=== PATIENT | male | born 1965 | race Caucasian/White ===

== ENCOUNTER → 2024-05-21 | Outpatient (CLI) | payer OTHER ==
[~2024-05-21] MED LIST: METO10 PO; [UNRECOGNIZED DRUG - REMARK] PO
[2024-05-21 16:10] LABS: BASOPHILS ABSOLUTE AUTO 0.01 K/mm3 (0.00-0.23); BASOPHILS PERCENT AUTO 0 % (0-2); EOSINOPHILS ABSOLUTE AUTO 0.14 K/mm3 (0.00-0.68); EOSINOPHILS PERCENT AUTO 2 % (0-6); Hematocrit 43.1 % (37.0-53.0); Hemoglobin 14.8 g/dL (13.5-17.5); IMMATURE GRAN ABSOLUTE AUTO 0.02 K/mm3 (0.00-0.10); IMMATURE GRAN PERCENT AUTO 0 % (0-1); LYMPHOCYTES ABSOLUTE AUTO 1.61 K/mm3 (0.84-5.20); LYMPHOCYTES PERCENT AUTO 23 % (21-46); MONOCYTES ABSOLUTE AUTO 0.64 K/mm3 (0.16-1.47); MONOCYTES PERCENT AUTO 9 % (4-13); Mean Corpuscular HGB 30.5 pg (26.0-34.0); Mean Corpuscular HGB Conc 34.3 g/dL (31.5-36.5); Mean Corpuscular Volume 89 fL (80-100); Mean Platelet Volume 9.4 fL (9.1-12.4); NEUTROPHILS ABSOLUTE AUTO 4.64 K/mm3 (1.96-9.15); NEUTROPHILS PERCENT AUTO 66 % (41-73); Platelet Count 227 K/mm3 (150-400); RDW Coefficient Variation 12.8 % (11.7-14.2); RDW Standard Deviation 41.3 fL (35.1-46.3); Red Blood Cell Count 4.86 M/mm3 (4.30-5.90); White Blood Cell Count 7.06 K/mm3 (4.00-11.30)
[2024-05-21 16:21] LABS: Albumin/Globulin Ratio 0.7 (0.8-1.8); Bilirubin, Total 0.9 mg/dL (0.1-1.0); Bun/Creatinine Ratio 10.3 (12.0-20.0); Calcium, Blood 8.8 mg/dL (8.5-10.1); Creatinine, Blood 1.16 mg/dL (0.60-1.20); Globulin, Blood 4.1 g/dL (2.2-4.0); Potassium, Blood 3.9 mmol/L (3.5-5.5); Total Protein, Blood 7.1 g/dL (6.4-8.2)
== END | disposition home or self-care (01) ==
LOC: LAB SHORT 16:05 → LAB 16:05
PROVIDERS: Chiropractor
DX: M54.50 Low back pain, unspecified (principal)
CPT/HCPCS: 80053; 85025

== ENCOUNTER 2024-11-26 14:23 | Inpatient (IN) | payer OTHER ==
[~2024-11-26] VITALS: Ht 188 cm; Wt 113.4 kg
[2024-11-26] MEDS ORDERED: Morphine Sulfate 4 MG/1 ML Injection IV PRN (14:45)
[2024-11-26] MEDS ORDERED: CeFAZolin Sodium 2,000 MG in NS 100 ML IV ONE (14:45)
[2024-11-26 15:02] LABS: BASOPHILS ABSOLUTE AUTO 0.02 K/mm3 (0.00-0.23); BASOPHILS PERCENT AUTO 0 % (0-2); EOSINOPHILS ABSOLUTE AUTO 0.09 K/mm3 (0.00-0.68); EOSINOPHILS PERCENT AUTO 1 % (0-6); Hematocrit 43.9 % (37.0-53.0); Hemoglobin 15.3 g/dL (13.5-17.5); IMMATURE GRAN ABSOLUTE AUTO 0.01 K/mm3 (0.00-0.10); IMMATURE GRAN PERCENT AUTO 0 % (0-1); LYMPHOCYTES ABSOLUTE AUTO 1.55 K/mm3 (0.84-5.20); LYMPHOCYTES PERCENT AUTO 17 % (21-46); MONOCYTES ABSOLUTE AUTO 0.52 K/mm3 (0.16-1.47); MONOCYTES PERCENT AUTO 6 % (4-13); Mean Corpuscular HGB Conc 34.9 g/dL (31.5-36.5); Mean Corpuscular Volume 89 fL (80-100); NEUTROPHILS ABSOLUTE AUTO 7.21 K/mm3 (1.96-9.15); NEUTROPHILS PERCENT AUTO 77 % (41-73); NRBC ABSOLUTE 0.00 K/mm3 (0.00-0.02); NRBC Auto 0.0 /100 WBC (0.0-0.2); Platelet Count 210 K/mm3 (150-400); RDW Coefficient Variation 13.2 % (11.7-14.2); RDW Standard Deviation 43.2 fL (35.1-46.3)
--- NOTE | 2024-11-26 15:02 | NUR ---
"Spiritual Care | Trauma Team family support. Stayed with spouse outside the room while the staff was stabilizing the pt. on the ED bed. Facilitated life review and story of the day. Listened with interest and empathy. This electric melt operator encouraged the Pt. to share concerns with Pts. nurse. When Pt. went to bedside, this electric melt operator departed."
[2024-11-26 15:18] LABS: Prothrombin Time Results 11.4 Sec (9.7-11.5)
[2024-11-26] MEDS ORDERED: HYDROmorphone HCl/Pf 1MG SYR IV ONE (15:50)
[2024-11-26 15:58] LABS: Alanine Aminotransfer (ALT/SGP 29 U/L (12-78); Albumin, Blood 3.6 g/dL (3.4-5.0); Albumin/Globulin Ratio 1.1 (0.8-1.8); Anion Gap 6 mmol/L (3-11); Aspartate Aminotrans (AST/SGOT 19 U/L (12-37); Bilirubin, Total 0.8 mg/dL (0.1-1.0); Blood Urea Nitrogen 18 mg/dL (8-24); CO2, Blood 25 mmol/L (21-32); Calcium, Blood 8.8 mg/dL (8.5-10.1); Chloride, Blood 104 mmol/L (98-108); Creatinine, Blood 1.13 mg/dL (0.60-1.20); Globulin, Blood 3.3 g/dL (2.2-4.0); Glucose, Blood 149 mg/dL (70-99); Potassium, Blood 4.3 mmol/L (3.5-5.5); Sodium, Blood 131 mmol/L (136-145); Total Protein, Blood 6.9 g/dL (6.4-8.2)
[2024-11-26 15:59] LABS: Ethanol (Alcohol), Blood, Med <3 mg/dL
[2024-11-26] MEDS ORDERED: Morphine Sulfate 4 MG/1 ML Injection IV ONE (17:25)
[2024-11-26] MEDS ORDERED: Clindamycin 600mg in D5W 50 ML IV ONE (17:40)
[2024-11-26 17:46] LABS: Source, Urine Clean Catch
[2024-11-26 17:50] LABS: Bilirubin, Urine Neg (Neg); Color, Urine Yellow (P-Yellow); Glucose Qualitative, Urine Neg (Neg); Ketones, Urine Neg (Neg); Leukocyte Esterase, Urine Neg (Neg); Protein, Urine 1+ (Neg); Specific Gravity, Urine 1.015 (1.003-1.022); Urobilinogen, Urine NORM (Normal)
[2024-11-26 18:04] LABS: U Amphetamine Screen DETECTED; U Barbituate Screen Not Detected; U Benzodiazapine Screen Not Detected; U Buprenorphine Screen Not Detected; U Cannabinoids Screen Not Detected; U Cocaine Screen Not Detected; U Methadone Screen Not Detected; U Methamphetamine Screen DETECTED; U Opiates Screen DETECTED; U Oxycodone Screen Not Detected; U Phencyclidine Screen Not Detected
[2024-11-26] MEDS ORDERED: NS 1,000 ML IV SCH (21:00)
[2024-11-26] MEDS ORDERED: Ketorolac Tromethamine 15mg Vial IV PRN (21:00)
[2024-11-26] MEDS ORDERED: OxyCODONE 5 mg/Acetamin 325 mg TABLET PO PRN ×2 (21:00→22:15)
[2024-11-26] MEDS ORDERED: FentaNYL Citrate 50 MCG/ML 2 ML Injection ONE (23:53)
[2024-11-26] MEDS ORDERED: Rocuronium Bromide 10 MG/ML 5ML Injection IV ONE (23:55)
[2024-11-27] VITALS (8 sets, daily range): BP systolic 121–142; BP diastolic 65–82
[2024-11-27] MEDS ORDERED: Dexamethasone Sod Phos 10 MG/ML 1ML VIAL ONE (00:05)
[2024-11-27] MEDS ORDERED: Ketorolac Tromethamine 30mg Vial ONE (00:05)
[2024-11-27] MEDS ORDERED: Ondansetron HCl 2 MG / ML 2ML Vial ONE (00:05)
[2024-11-27] MEDS ORDERED: HYDROmorphone HCl/Pf 1MG SYR IV PRN ×2 (00:20→03:10)
[2024-11-27] MEDS ORDERED: Ondansetron HCl 2 MG / ML 2ML Vial IV PRN (00:20)
[2024-11-27] MEDS ORDERED: Albuterol 2.5 MG/3 ML VIAL INH PRN (00:20)
[2024-11-27] MEDS ORDERED: FentaNYL Citrate 50 MCG/ML 2 ML Injection IV PRN (00:20)
[2024-11-27] MEDS ORDERED: Bupivacaine 0.5% HCl 5 MG/ML 30MLVIAL ONE (00:22)
[2024-11-27] MEDS ORDERED: Sugammadex Sodium 200 MG/2ML SDV (100 MG/ML) ONE (00:57)
[2024-11-27] MEDS ORDERED: Clindamycin 900mg in D5W 50ML 50 ML IV SCH (02:00)
[2024-11-27] MEDS ORDERED: CeFAZolin Sodium 1,000 MG in NS 50 ML IV SCH (02:00)
[2024-11-27] MEDS ORDERED: OxyCODONE 5 mg/Acetamin 325 mg TABLET PO PRN ×2 (03:10→15:15)
[2024-11-27] MEDS ORDERED: NS 1,000 ML IV SCH (03:10)
--- NOTE | 2024-11-27 03:30 | NUR ---
ARRIVAL NOTE PT ARRIVED TO UNIT FROM ICU/PACU S/P I&D OF LEFT ELBOW AT 0200 TODAY. DRESSING AND SHRUTHI WRAP TO LEFT ELBOW CDI. SOFT SPLINT AND SHRUTHI WRAP TO LLE CDI DUE TO UNSTABLE TIB/FIB FX. DENIES N/T, ABLE TO WIGGLE FINGERS AND TOES. ABRASION FROM [employer] NOTED TO MOST OF RIGHT ARM- WOUND IS SUPERFICIAL, OPEN TO AIR AND WITHOUT ANY DRAINAGE. SEE PHOTO IN CHART. PT IS A/OX4 WITH VSS. ABLE TO MAKE NEEDS KNOWN. ATTENTIVE AT BEDSIDE. VALERY PO INTAKE, DENIES N/V. AWAITING FIRST POST OP VOID. IS NON WT BEARING ON LLE/LUE. ABX AND IVF INFUSING PER ORDERS. DENIES PAIN. ORIENTATION TO ROOM PROVIDED TO PT AND SPOUSE. ADMISSION ASSESSMENT AND INTAKE QUESTIONS COMPLETED ON PAPER CHARTING DUE TO MEDITECH DOWN TIME. PLAN FOR REST, IV ABX AND PAIN MANAGEMENT UNTIL REPEAT I/D AND LLE FX REPAIR TOMORROW. PT CURRENTLY EATING SNACKS AND VISITING WITH . HAS CALL LIGHT AND DENIES NEEDS. WILL GIVE REPORT TO ONCOMING RN.
[2024-11-27 05:16] LABS: BASOPHILS ABSOLUTE AUTO 0.01 K/mm3 (0.00-0.23); BASOPHILS PERCENT AUTO 0 % (0-2); EOSINOPHILS ABSOLUTE AUTO 0.01 K/mm3 (0.00-0.68); EOSINOPHILS PERCENT AUTO 0 % (0-6); Hematocrit 42.9 % (37.0-53.0); Hemoglobin 14.5 g/dL (13.5-17.5); IMMATURE GRAN ABSOLUTE AUTO 0.02 K/mm3 (0.00-0.10); IMMATURE GRAN PERCENT AUTO 0 % (0-1); LYMPHOCYTES ABSOLUTE AUTO 0.69 K/mm3 (0.84-5.20); LYMPHOCYTES PERCENT AUTO 9 % (21-46); MONOCYTES ABSOLUTE AUTO 0.19 K/mm3 (0.16-1.47); MONOCYTES PERCENT AUTO 2 % (4-13); Mean Corpuscular HGB Conc 33.8 g/dL (31.5-36.5); Mean Corpuscular Volume 90 fL (80-100); NEUTROPHILS ABSOLUTE AUTO 6.99 K/mm3 (1.96-9.15); NEUTROPHILS PERCENT AUTO 88 % (41-73); NRBC ABSOLUTE 0.00 K/mm3 (0.00-0.02); NRBC Auto 0.0 /100 WBC (0.0-0.2); Platelet Count 210 K/mm3 (150-400); RDW Coefficient Variation 13.2 % (11.7-14.2); RDW Standard Deviation 43.5 fL (35.1-46.3)
[2024-11-27 05:39] LABS: Alanine Aminotransfer (ALT/SGP 25.0 U/L (12-78); Albumin, Blood 3.2 g/dL (3.4-5.0); Albumin/Globulin Ratio 1.0 (0.8-1.8); Anion Gap 10.0 mmol/L (3-11); Aspartate Aminotrans (AST/SGOT 15.0 U/L (12-37); Bilirubin, Total 1.0 mg/dL (0.1-1.0); Blood Urea Nitrogen 17.0 mg/dL (8-24); CO2, Blood 24.0 mmol/L (21-32); Calcium, Blood 7.9 mg/dL (8.5-10.1); Chloride, Blood 103.0 mmol/L (98-108); Creatinine, Blood 1.12 mg/dL (0.60-1.20); Globulin, Blood 3.3 g/dL (2.2-4.0); Glucose, Blood 228.0 mg/dL (70-99); Potassium, Blood 4.5 mmol/L (3.5-5.5); Sodium, Blood 132.0 mmol/L (136-145); Total Protein, Blood 6.5 g/dL (6.4-8.2)
--- NOTE | 2024-11-27 15:26 | NUR ---
SHIFT SUMMARY PT HAS DONE WELL TODAY. ABLE TO MAKE NEEDS KNOWN. PAIN MANAGED PER EMAR, WITH ACTIVITY PAIN INCREASED. MD NOTIFIED AND NEW ORDERS RECIEVED. EATING, DRINKING, AND VOIDING WELL. CAP REFILL <3 SECONDS. LLE ELEVATED ON PILLOW. LUE WOUNDVAC WNL. PER DR BISHOP PRESCOTT NON-SURG, PLANS TO INCORPERATE THERAPY. REPORT GIVEN TO MARSHA NEGRON.
--- NOTE | 2024-11-27 15:37 | NUR ---
ASSUMED CARE OF PT. RESTING IN BED, CALL LIGHT IN REACH. SPOUSE BEDSIDE. DENIES ANY NEEDS AT THIS TIME.
--- NOTE | 2024-11-27 17:29 | NUR ---
SUMMARY NO ACUTE CHANGES SINCE ASSUMING CARE OF PT AT 1600. ADMINISTERED ABX PER ORDERS. PT SLEEPING OFF AND ON. SPOUSE BEDSIDE. CALL LIGHT IN PT'S REACH.
[2024-11-28] VITALS (18 sets, daily range): BP systolic 109–144; BP diastolic 51–94
--- NOTE | 2024-11-28 04:08 | NUR ---
SHIFT SUMMARY JIGNESH WAS ASLEEP, BUT EASILY ROUSABLE AND FULLY ORIENTED ON ASSESSMENT. PT PAIN WELL MANAGED. WOUND VAC IN PLACE TO L ELBOW SUCTIONING RED S/S. SENSATION TO EXT'S INTACT WITH GOOD CAP REFIL TO TOES/FINGERS. PT KEPT NPO FROM MIDNIGHT FOR I/D ON DAYSHIFT. PT DENIES NEW OR WORSENING CONDITIONS. NO ACUTE EVENTS TONIGHT.
[2024-11-28] MEDS ORDERED: Tranexamic Acid 100 ML IV SCH (09:40)
[2024-11-28] MEDS ORDERED: Ondansetron HCl 2 MG / ML 2ML Vial ONE (11:02)
[2024-11-28] MEDS ORDERED: FentaNYL Citrate 50 MCG/ML 2 ML Injection ONE (11:02)
[2024-11-28] MEDS ORDERED: Midazolam HCl 1MG / ML 2ML Vial ONE (11:02)
[2024-11-28] MEDS ORDERED: Dexamethasone Sod Phos 10 MG/ML 1ML VIAL ONE (11:02)
--- NOTE | 2024-11-28 11:52 | NUR ---
assumption ASSUMED CARE OF PT @0700. AXO4. VSS. L ARM WITH WOUND VAC. L ANKLE IN SPLINT, DRESSING CDI. PT PAINFUL, PO MEDS ADMINISTERED, PT REQUIRED IV PAIN MEDICATION ON TOP OF THIS TO ADEQUATELY CONTROL ANKLE PAIN, POST ADMINISTRATION, PT STATES TOLERABLE PAIN LEVEL AND RESTING. HAS REMAINED NPO EXCEPT FOR SMALL SIP OF WATER FOR PO PILLS. IV ABX INFUSED. SURGERY NURSE PICKING PT UP NOW FOR [facility] [id number]
[2024-11-28] MEDS ORDERED: Bupivacaine 0.5% W/EPI 1:200000 SDV 30 ML Vial ONE (12:04)
--- NOTE | 2024-11-28 12:19 | NUR ---
History, Chart, Medications and Allergies reviewed before start of procedure. Patient confirms NPO status and agrees with scheduled surgery. Pre-Op teaching done. Pt verbalizes understanding. Lungs clear T/O to Auscultation.
--- NOTE | 2024-11-28 12:20 | NUR ---
PT PRESENTS WITH WOUND VAC TO LEFT ELBOW
[2024-11-28] MEDS ORDERED: Phenylephrine HCl 100 MCG/ML-NS 10MLSYR (1MG/10ML) ONE (12:24)
[2024-11-28] MEDS ORDERED: CeFAZolin Sodium 1000 mg Vial ONE (12:59)
[2024-11-28] MEDS ORDERED: Ketorolac Tromethamine 30mg Vial ONE (13:08)
[2024-11-28] MEDS ORDERED: HYDROmorphone HCl/Pf 1MG SYR IV PRN ×2 (13:10→13:15)
[2024-11-28] MEDS ORDERED: Albuterol 2.5 MG/3 ML VIAL INH PRN (13:10)
[2024-11-28] MEDS ORDERED: Metoclopramide HCl 5MG / ML 2ML Vial IV PRN (13:10)
[2024-11-28] MEDS ORDERED: HydrALAZINE HCl 20 MG / ML 1ML Vial IV PRN (13:15)
[2024-11-28] MEDS ORDERED: Ondansetron HCl 2 MG / ML 2ML Vial IV PRN (13:15)
[2024-11-28] MEDS ORDERED: FentaNYL Citrate 50 MCG/ML 2 ML Injection IV PRN ×2 (13:15)
--- NOTE | 2024-11-28 14:49 | NUR ---
PT BACK TO UNIT @1445 AXO4. VSS. L LEG IN SPLINT. L ARM IN SHRUTHI WRAP WITH WOUND VAC. C/O PAIN CURRENTLY. WILL TREAT PER EMAR.
[2024-11-28] MEDS ORDERED: NS 250 ML IV PRN (15:40)
--- NOTE | 2024-11-28 18:04 | NUR ---
SUMMARY PT AXO4. VSS. HAD L ANKLE PINNING AND L ELBOW WASHED OUT AND INCISION CLOSED UP MORE. WOUND VAC PLACED TO L ARM, DRESSED WITH SHRUTHI WRAP. L ANKLE SOFT SPLINTED, DRESSED WITH SHRUTHI WRAP. POST OP, VSS. AXO4. TOLERATING FULL MEAL. TALAKTIVE. REQIRED PAIN MEDICATIONS - TOLERATED WELL. DENYING NASUEA. IN ROOM POST OP. PT SITTING UP IN BED IN CHEERFUL MOOD. 2ND DOSE OF TXA ADMINISTERED. ABX INFUSING ORDERED. PT USING CALL LIGHT APPROPRIATELY.
[2024-11-29 04:30] VITALS: BP 145/72
--- NOTE | 2024-11-29 05:07 | NUR ---
SHIFT SUMMARY LUZ WAS SLEEPING HEAVILY AT START OF SHIFT BUT ROUSABLE AND FULLY ORIENTED ON ASSESSMENT. PT PAIN WELL MANAGED. SENSATION AND CIRCULATION TO ALL EXT'S INTACT, ABLE TO WIGGLE ALL FINGERS AND TOES. DRESSING TO L ELBOW C/D/I AND ATTATCHED TO WOUND VAC, SCANT TO NO DRAINAGE COLLECTED. NO DRAINAGE NOTED TO L ANKLE CAST. NO ACUTE EVENTS TONIGHT NO NOTED CHANGES TO PT CONDITION.
[2024-11-29 08:35] VITALS: BP 147/83
[2024-11-29 09:06] LABS: Anion Gap 8.0 mmol/L (3-11); Blood Urea Nitrogen 20.0 mg/dL (8-24); CO2, Blood 26.0 mmol/L (21-32); Calcium, Blood 8.3 mg/dL (8.5-10.1); Chloride, Blood 106.0 mmol/L (98-108); Creatinine, Blood 0.97 mg/dL (0.60-1.20); Glucose, Blood 129.0 mg/dL (70-99); Potassium, Blood 4.5 mmol/L (3.5-5.5); Sodium, Blood 135.0 mmol/L (136-145)
[2024-11-29 16:34] VITALS: BP 147/74
--- NOTE | 2024-11-29 17:11 | NUR ---
SUMMARY NO ACUTE CHANGES THIS SHIFT. VSS. ABX INFUSING T/O SHIFT. PAIN MEDS PER PT REUEST IN PLACE - NOT WANTING TO BE "TOO DROWSY". SOFT SPLINT REMAINS TO L LEG. WOUND VAC REMAINS TO L ARM. BOTH SHRUTHI WRAPS CDI. TOLERATING PO INTAKE. STATES NO BM POST HOSPITALIZATION YET. RECEIVING COLACE BID. OTHERWISE, PLAN FOR POSSIBLE DC MONDAY/MONDAY - DEPENDING ON WOUND CARE CAPABILITIES.
[2024-11-29 19:35] VITALS: BP 156/70
--- NOTE | 2024-11-30 04:38 | NUR ---
SHIFT SUMMARY NOC PT A/O X 4. PLEASANT AND COOPERATIVE WITH CARE. VSS. NO ACUTE CHANGES TO REPORT. SPLINT/DRESSING ON LLE IS C/D/I, WELL DRESSING ON LUE WITH WOUND VAC DRAINING VERY SCANT AMOUNTS OF SEROSANGUINEOUS FLUID. PT RECEIVING IV ABX AND PAIN MANAGEMENT PER EMAR. PT STILL HAS NOT HAD BM IN LAST 3 DAYS AND HAS RECEIVED BOWEL CARE PER EMAR. PT CURRENTLY RESTING WITH BED IN LOWEST POSITION, AND CALL LIGHT WITHIN REACH.
[2024-11-30 04:42] VITALS: BP 172/93
[2024-11-30 07:58] VITALS: BP 134/78
[2024-11-30] MEDS ORDERED: Polyethylene Glycol 3350 17 gm PO SCH (09:15)
[2024-11-30 15:50] VITALS: BP 150/84
--- NOTE | 2024-11-30 18:06 | NUR ---
SHIFT SUMMARY PT A&OX4, VSS, RA. BOWEL MEDS ORDERED, BM THIS AFTERNOON ON TOILET. PT MEDICALLY STABLE FOR DISCHARGE, AWAITING WOUND VAC TO TAKE HOME PRIOR TO DISCHARGE. PT ABLE TO MOVE TOES, PULSES AND CAP REFIL STRONG TO ALL EXTREMITIES.
[2024-11-30 20:07] VITALS: BP 139/84
[2024-12-01 03:30] VITALS: BP 122/75
--- NOTE | 2024-12-01 04:01 | NUR ---
SHIFT SUMMARY NOC PT A/O X 4. PLEASANT AND COOPERATIVE WITH CARE. VSS. NO ACUTE CHANGES TO REPORT. WOUND VAC ON LUE WITH SCANT SEROSANGUINOUS DRAINAGE WITH SHRUTHI WRAP OVER DRESSING. SPLINT WITH SHRUTHI WRAP OVER L ANKLE FX C/D/I. PAIN BEING MANAGED PER EMAR. PT AND AND HOPE TO DISCHARGE TOMORROW, BUT UNSURE IF THEY WILL BE ABLE TO OBTAIN A PERSONAL WOUND VAC PRIOR TO MONDAY. THE PT SPOUSE SAID SHE WILL LOOK ON THE COAST AND UP IN [place] TO SEE IF ONE IS AVAILABE EVEN IF IT INCURS AN OUT OF POCKET EXPENSE. PT IS CURRENTLY RESTING WITH BED IN LOWEST POSITION, AND CALL LIGHT WITHIN REACH.
[2024-12-01 07:26] VITALS: BP 126/85
[2024-12-01 15:44] VITALS: BP 154/91
[2024-12-01 19:46] VITALS: BP 159/92
[2024-12-02 06:04] VITALS: BP 133/82
[2024-12-02 07:29] VITALS: BP 145/70
--- NOTE | 2024-12-02 14:10 | NUR ---
WOUND VAC REMOVAL WOUND VAC REMOVED. MEASURMENTS AND PHOTOS TAKEN, PLACED IN PT CHART. WET TO DRY DRESSING IN PLACE OVER WOUND. PT TOLERATED WELL.
[2024-12-02 14:57] VITALS: BP 129/69
[2024-12-02] MEDS ORDERED: ACET325 PO (15:48)
[2024-12-02] MEDS ORDERED: MIRALAX17 GM PO (15:49)
[2024-12-02] MEDS ORDERED: VISBIOME 112.51 EACH PO (15:49)
[2024-12-02] MEDS ORDERED: CLIN150 PO (15:50)
--- NOTE | 2024-12-02 16:20 | NUR ---
DISCHARGE NOTE PT VSS. DRESSING C/D/I. VERBALIZED UNDERSTANDING OF D/C EDUCATION. PT EDUCATED ON WOUND CARE, IMPORTANCE OF ADHERING TO ANTIBIOTICS. PT AMBULATAING IND USING FWW, FOLLOWING WEIGHT BEARING RESTRICTIONS. ADEQUATE INTAKE AND OUTPUT, NO N/V. ESCORTED OUT VIA WC. SUPPLIED W/ WOUND CARE SUPPLIES.
== END 2024-12-02 16:15 | disposition home or self-care (01) | DRG 492 ==
LOC: ER 14:23 → SURS 14:24 → ERHOLD 14:24 → SURS 22:00
PROVIDERS: Internal Medicine; Nurse Practitioner Acute Care; Orthopaedic Surgery; Student in an Organized Health Care Education/Training Program; ADMIT Surgery
PROC: 0PDL0ZZ Extraction of Left Ulna, Open Approach (ICD-10-PCS; 2024-11-27)
PROC: 0QSH34Z Reposition Left Tibia with Internal Fixation Device, Percutaneous Approach (ICD-10-PCS; principal; 2024-11-28 12:30)
PROC: 0QSK34Z Reposition Left Fibula with Internal Fixation Device, Percutaneous Approach (ICD-10-PCS; 2024-11-28 12:30)
DX: S82.862A Displaced Maisonneuve's fracture of left leg, initial encounter for closed fracture (principal); S52.022B Displaced fracture of olecranon process without intraarticular extension of left ulna, initial encounter for open fracture type I or II; E87.1 Hypo-osmolality and hyponatremia; S82.892A Other fracture of left lower leg, initial encounter for closed fracture; V28.49XA Other motorcycle driver injured in noncollision transport accident in traffic accident, initial encounter; R73.9 Hyperglycemia, unspecified
CPT/HCPCS: 29515; 36415; 70450; 71260; 72125; 73060; 73080; 73090; 73201; 73590; 73700; 74177; 80048; 80053; 80320; 83690; 85025; 85610; 96365; 96366; 96367; 96375; 96376; 97116; 97162; 99285-25; A9270; C1776; G0378; J0690; J1100; J1171; J1885; J2250; J2270; J2371; J2405; J2704; J3010; J7030; J7050; J7120; L0160; Q9967

== ENCOUNTER 2025-01-20 11:47 | Emergency (ER) | payer OTHER ==
[~2025-01-20] VITALS: Ht 188 cm; Wt 110.0 kg
[~2025-01-20 11:47] MED LIST changes: +ACET325 PO; +CLIN150 PO; +MIRALAX17 GM PO; +VISBIOME 112.51 EACH PO
[2025-01-20 14:00] VITALS: BP 130/68
[2025-01-20] MEDS ORDERED: ELIQUIS5 M2 PO ×3 (14:59→15:00)
== END 2025-01-20 15:05 | disposition home or self-care (01) ==
LOC: ER 11:47
DX: I82.412 Acute embolism and thrombosis of left femoral vein (principal); I82.432 Acute embolism and thrombosis of left popliteal vein; I82.4Z2 Acute embolism and thrombosis of unspecified deep veins of left distal lower extremity; F17.220 Nicotine dependence, chewing tobacco, uncomplicated; Z98.890 Other specified postprocedural states; Z59.89 Other problems related to housing and economic circumstances
CPT/HCPCS: 99283-25

== ENCOUNTER 2025-03-17 07:07 | Day surgery (SDC) | payer OTHER ==
[2025-03-17] VITALS (7 sets, daily range): BP systolic 109–176; BP diastolic 76–112
[~2025-03-17] VITALS: Ht 188 cm; Wt 109.0 kg
[~2025-03-17 07:07] MED LIST changes: +ELIQUIS5 M2 PO
[2025-03-17] MEDS ORDERED: ELIQUIS5 M2 PO (07:29)
[2025-03-17] MEDS ORDERED: NS 1,000 ML IV ONE ×2 (07:44→08:44)
[2025-03-17] MEDS ORDERED: Heparin Sodium 1000 Units/ML 10ML MDV ONE ×2 (07:44→08:44)
[2025-03-17] MEDS ORDERED: NS 500 ML IV ONE (07:44)
[2025-03-17] MEDS ORDERED: Midazolam HCl 1MG / ML 2ML Vial ONE (08:43)
[2025-03-17] MEDS ORDERED: FentaNYL Citrate 50 MCG/ML 2 ML Injection ONE (08:43)
--- NOTE | 2025-03-17 10:05 | NUR ---
ASSUMED CARE OF PT POST PROCEDURE. PT AWAKE AND CONVERSING APPROPRIATELY; DENIES PAIN POST PROCEDURE. MONITOR SR 70'S, B/P 156/85, SPO2 97 % RA. L POPLITEAL SITE NO SWELLING/HEMATOMA, TEGADERM DRSG INTACT.
--- NOTE | 2025-03-17 11:00 | NUR ---
PT AMB TO BATHROOM, SITE UNCHANGED. PT DRESSED SELF WITHOUT ISSUE, IV REMOVED-CANNULA INTACT.
--- NOTE | 2025-03-17 11:08 | NUR ---
PT AND RECEIVED DISCHARGE INSTRUCTIONS AND AFTER CARE INSTRUCTIONS; VERBALIZED GOOD UNDERSTANDING. PT LEFT FACILITY VIA W/C.
== END 2025-03-17 11:08 | disposition home or self-care (01) ==
LOC: MHTC 07:07
DX: I82.409 Acute embolism and thrombosis of unspecified deep veins of unspecified lower extremity (principal); F17.220 Nicotine dependence, chewing tobacco, uncomplicated; Z79.01 Long term (current) use of anticoagulants
CPT/HCPCS: 76937; 76998; 99152; C1769; C1887; J1644; J2250; J3010; J7030; J7040; Q9967